=== PATIENT | male | born 1955 | race Caucasian/White ===

== ENCOUNTER 2018-06-20 18:04 | Observation (INO) ==
[2018-06-20] MEDS ORDERED: Sod Chloride 0.9% Inj 1,000 ML IV.SIG ONE ×2 (19:11→20:55)
[2018-06-20] MEDS ORDERED: Morphine Inj 4 MG/ML Vial IV.PUSH ONE (19:23)
--- NOTE | 2018-06-20 19:36 | ED ---
HPI General Chief complaint: Weakness Stated complaint: Diabetic complaint Time Seen by Provider: 06/20/18 19:10 Source: patient and family Limitations: no limitations History of Present Illness HPI narrative: The patient is a 62 year old female who presents to the [facility] emergency department with a history of abdominal pain in the left lower quadrant, nausea, vomiting, and diarrhea that began 2 weeks ago. The patient reports that he has a history of intermittent lower extremity edema and diabetic neuropathy. He reports that his lower extremity edema has been worse than usual over the last 2 weeks and his neuropathic pain is also worse. He reports that 2 weeks ago he ran out of insulin for his insulin pump. He reports that he is having difficulty getting insulin prescription filled from the pharmacy. He denies being on any short acting insulin. Patient arrives with a blood sugar of 400. The patient reports that he was seen at the emergency department at [facility] between Wednesday and Wednesday a.m. He reports that he is diagnosed with an intestinal infection and started on Flagyl and ciprofloxacin. He reports that his symptoms have worsened with time. He reports that he has been taking Zofran for nausea. He reports that he last had an episode of diarrhea yesterday. He reports that it is loose and brown in color. He denies having any blood in his stool or black or tarry stools. His family reports that it does have a foul odor. He denies any stool studies being done at [facility]. He reports having dry heaves today in spite of Zofran use. He reports that the emesis at times appears bilious. He denies having any hematemesis. On review of systems otherwise, the patient denies having any known recent fevers, worsening cough or congestion , neck pain, chest pain, dysuria, urinary urgency,or neurologic symptoms. The patient reports having urinary frequency. The patient also reports having chronic shortness of breath. He reports that he is down 3 L nasal cannula O2 as needed during the day and through the night. Related Data Home Medications Medication Instructions Recorded Confirmed ciprofloxacin HCl [Cipro] 500 mg PO Q12H 06/21/18 06/21/18 metronidazole [Flagyl] 500 mg PO BID 06/21/18 06/21/18 oxycodone [OxyContin] 40 mg PO Q12H 06/21/18 06/21/18 oxycodone [Roxicodone] 15 mg PO Q8H PRN 06/21/18 06/21/18 Previous Rx's Medication Instructions Recorded ciprofloxacin HCl 500 mg PO Q12HR #20 tab 06/21/18 insulin aspart U-100 [Novolog 1 sliding scale dose SUB-Q UD #5 06/21/18 U-100 Insulin aspart] vial insulin detemir U-100 [Levemir 5 unit SUB-Q BID #2 vial 06/21/18 U-100 Insulin] metronidazole 500 mg PO Q8HR #30 tab 06/21/18 sennosides [Senna Lax] 17.2 mg PO Q12H PRN #120 tab 06/21/18 Allergies Allergy/AdvReac Type Severity Reaction Status Date / Time amoxicillin [From Augmentin] Allergy Rash Verified 06/20/18 18:26 clavulanic acid Allergy Rash Verified 06/20/18 18:26 [From Augmentin] prednisone Allergy Rash Verified 06/20/18 18:26 Review of Systems ROS: all other systems reviewed are negative (Except for that which was mentioned in the HPI.) [facility]LY [facility] Medical History Medical History COPD (chronic obstructive pulmonary disease) (Acute) Diabetes mellitus (Acute) [place] (hard of hearing) (Acute) Insulin dependent diabetes mellitus (Acute) Neuropathy (Acute) Surgical History Surgical History Hx of cholecystectomy (Acute) Family History Family History Father CAD (coronary artery disease) Mother Stomach cancer Social History Social History Substance History: No History of Abuse Smoking Status: Former smoker Tobacco Type: Cigarettes How Often Do You Have a Drink Containing Alcohol: Never Immunization History Tetanus Immunization: >5 Years Hx Influenza Vaccine This Season: Yes Exam Const General: cooperative, well developed and acute distress (Related to abdominal pain.) moderate Orientation: alert, awake and oriented x3 HENMT Head: normocephalic and atraumatic Nose: no nasal discharge and no epistaxis Mouth: mucous membranes dry (Tacky mucous membranes.) Throat: posterior oropharynx normal and uvula midline Eyes Sclera: normal sclerae Pupils: PERRL Neck Neck: no meningeal signs, trachea midline and no JVD Resp Effort & Inspection: no use of accessory muscles Auscultation: clear to auscultation bilaterally Cardio Rate: regular rate Rhythm: regular rhythm Heart Sounds: no gallops, no murmurs and no rubs GI Inspection: non-distended Palpation: soft, no hepatosplenomegaly, no guarding, not rigid and tender ( Diffuse tenderness on palpation. Most prominent in the left lower quadrant of the abdomen.) Bishop's sign negative and with no rebound tenderness Auscultation: normal bowel sounds Back/Spine/Pelvis Back: no CVA tenderness Skin General: dry skin (warm) Neuro General: alert, awake and oriented x3 Cranial Nerves: other (Grossly nonfocal. No facial asymmetry.) Speech: speech normal Motor: no movement abnormalities noted Extrem General: normal to inspection (No calf tenderness on palpation. 2+ pulses in all 4 extremities.), no clubbing, no cyanosis and edema (Bilateral lower extremity edema mainly involving the feet, 1+.) Laterality: bilaterally Psych Mood: congruent mood Affect: normal affect Judgment: judgment good Course Reevaluation(s) Reevaluation #1: The patient on reevaluation had improvement in his, nausea and vomiting was controlled. Consultations Consultation #1: The patient's case including history, pertinent physical examination findings, and laboratory studies were discussed with Dr. Alex. It was agreed that the patient would be admitted to the hospitalist service. Initial Documented Vital Signs Temperature 97.8 F 06/20/18 18:07 Pulse Rate 101 H 06/20/18 18:07 Respiratory Rate 20 06/20/18 18:07 Blood Pressure 154/94 H 06/20/18 18:07 Pulse Oximetry 95 06/20/18 18:07 Last Documented Vital Signs Temperature 97.8 F 06/21/18 05:07 Pulse Rate 74 06/21/18 05:13 Respiratory Rate 20 06/21/18 05:13 Blood Pressure 107/54 L 06/21/18 05:13 Pulse Oximetry 97 06/21/18 05:07 Medical Decision Making MDM Narrative Medical decision making narrative: The patient will be discharged During the course of the patient's emergency department visit, the patient's history, examination, and differential diagnosis were reviewed with the patient. The patient was placed on a cardiac nurse specialist with oximetry and frequent blood pressure monitoring. The patient had IV access obtained and blood work sent for analysis. Diagnostic evaluation was started regarding the patient's abdominal pain. The patient was initially provided normal saline 1 L IV fluid bolus, morphine 4 mg IV for pain, Zofran Reglan 5 mg IV for nausea. The patient's diagnostic evaluation is remarkable for a white count of 5.8, platelets 260, neutrophil 79.8, hemoglobin 13.6, PT 11.4, PTT 24.8, VBG reveals a pH of 7.37, bicarb of 22 ruling out DKA, chemistries remarkable for troponin I of 0.04, sodium 133, glucose 344, lipase 27, chloride 95, calcium 7.9, beta hydroxybutyrate is elevated at 5.22, AST 14, anion gap 17, albumin 3.2. Chest x -ray shows hyperinflation from COPD, increased interstitial markings in the perihilar region these could be acute or chronic. The patient was given regular insulin 4 units subcutaneously 1. The patient was started on a second liter of normal saline IV. The patient had a CT scan of the abdomen and pelvis done that showed very prominent suspected emphysematous changes bullous changes in the right lower lung, scattered areas of suspected scarring atelectasis or consolidation of the lung bases, intra-and extrahepatic biliary ductal dilatation status post cholecystectomy, appears to be atrophy of the pancreas, no other acute abnormality. The patient's results were discussed with the patient, including the plan of care. I explained that further testing and/ or monitoring is indicated based on the patient's history, examination, and/ or laboratory findings. Therefore, I recommended admission for additional evaluation. The patient expressed understanding and was agreeable with this plan. The patient was admitted to the hospital in guarded condition and sent to a bed under the care of [facility] service. Medical Screen Exam Complete: Yes Emergency Medical Condition: Yes Differential Diagnosis Differential Diagnosis: DKA, versus colitis, versus diverticulitis, versus C. difficile colitis, versus gastroenteritis Medical Records Medical records reviewed: Yes I reviewed the patient's medical records. Lab Data Lab results reviewed: Yes I reviewed the patient's lab results. Result diagrams: 06/21/18 01:40 06/21/18 05:55 Lab Results 06/20/18 06/20/18 06/20/18 Range/Units 18:09 19:30 19:30 WBC (4.0-11.0) th/mm3 RBC (4.50-5.90) mil/mm3 Hgb (13.0-17.0) gm/dL Hct (39.0-51.0) % MCV (80.0-100.0) fL MCH (27.0-34.0) pg MCHC (32.0-36.0) % RDW (11.6-17.2) % Plt Count (150-450) th/mm3 MPV (7.0-11.0) fL Neut % (Auto) (16.0-70.0) % Lymph % (Auto) (9.0-44.0) % [place] % (Auto) (0.0-8.0) % Eos % (Auto) (0.0-4.0) % Baso % (Auto) (0.0-2.0) % Neut # (Auto) (1.8-7.7) th/mm3 Lymph # (Auto) (1.0-4.8) th/mm3 [place] # (Auto) (0.0-0.9) th/mm3 Eos # (Auto) (0.0-0.4) th/mm3 Baso # (Auto) (0.0-0.2) th/mm3 WBC Differential Differential Comment PT 11.4 (9.8-11.6) sec INR 1.1 Ratio APTT 24.8 (24.3-30.1) sec Puncture Site Patient Temperature VBG pH (7.360-7.400) VBG pCO2 (44-48) mmHG VBG pO2 (35-40) mmHG VBG HCO3 (22-26) mmol/L VBG O2 Saturation (70-76) % VBG O2 Content (9.0-17.0) Vol % VBG Base Excess (-2-2) mmol/L VBG Carboxyhemoglobin (0-4) % VBG Methemoglobin (0-2) % Hemoglobin (12.0-16.0) G/DL O2 Delivery Device Liter Flow L/M Inspired O2 % Critical Value Sodium (136-145) meq/L Potassium (3.5-5.1) meq/L Chloride (98-107) meq/L Carbon Dioxide (21.0-32.0) meq/L Anion Gap (5-15) meq/L BUN (7-18) mg/dL Creatinine (0.60-1.30) mg/dL Estimated GFR (>89) mL/min POC Glucose 400 H (68-110) mg/dl Random Glucose (74-106) mg/dL Lactic Acid 1.2 (0.4-2.0) mmol/L Calcium (8.5-10.1) mg/dL Total Bilirubin (0.2-1.0) mg/dL AST (15-37) U/L ALT (12-78) U/L Alkaline Phosphatase (45-117) U/L Total Creatine Kinase (39-308) U/L CK-MB (CK-2) (0.5-3.6) ng/mL Troponin I (0.02-0.05) ng/mL B-Natriuretic Peptide (0-100) pg/mL Total Protein (6.4-8.2) g/dL Albumin (3.4-5.0) g/dL Lipase (73-393) U/L Beta-Hydroxybutyric Acd (0.00-0.39) mmol/L Urine Color (Yellw/Straw) Urine Clarity (Clear) Urine pH (5.0-8.5) Ur Specific [place] (1.002-1.035) Urine Protein (Neg-Trace) mg/dL Urine Glucose (UA) (Negative) mg/dL Urine Ketones (Negative) mg/dL Urine Occult Blood (Negative) Urine Nitrate (Negative) Urine Bilirubin (Negative) Urine Urobilinogen (Less than 2) mg/dL Ur Leukocyte Esterase (Negative) Urine RBC (0-3) /hpf Urine WBC (0-5) /hpf Micro UA Comment Ur Microscopic Review Urine Culture Comments 06/20/18 06/20/18 06/20/18 Range/Units 19:30 19:30 19:30 WBC 5.8 (4.0-11.0) th/mm3 RBC 4.57 (4.50-5.90) mil/mm3 Hgb 13.6 (13.0-17.0) gm/dL Hct 40.4 (39.0-51.0) % MCV 88.4 (80.0-100.0) fL MCH 29.6 (27.0-34.0) pg MCHC 33.5 (32.0-36.0) % RDW 13.1 (11.6-17.2) % Plt Count 260 (150-450) th/mm3 MPV 7.7 (7.0-11.0) fL Neut % (Auto) 79.8 H (16.0-70.0) % Lymph % (Auto) 12.0 (9.0-44.0) % [place] % (Auto) 5.6 (0.0-8.0) % Eos % (Auto) 1.5 (0.0-4.0) % Baso % (Auto) 1.1 (0.0-2.0) % Neut # (Auto) 4.6 (1.8-7.7) th/mm3 Lymph # (Auto) 0.7 L (1.0-4.8) th/mm3 [place] # (Auto) 0.3 (0.0-0.9) th/mm3 Eos # (Auto) 0.1 (0.0-0.4) th/mm3 Baso # (Auto) 0.1 (0.0-0.2) th/mm3 WBC Differential . Differential Comment Auto diff final PT (9.8-11.6) sec INR Ratio APTT (24.3-30.1) sec Puncture Site Rn yomi from iv Patient Temperature 98.6 VBG pH 7.37 (7.360-7.400) VBG pCO2 39 L (44-48) mmHG VBG pO2 50 H (35-40) mmHG VBG HCO3 22 (22-26) mmol/L VBG O2 Saturation 80 H (70-76) % VBG O2 Content 14.5 (9.0-17.0) Vol % VBG Base Excess -2.8 L (-2-2) mmol/L VBG Carboxyhemoglobin 1.7 (0-4) % VBG Methemoglobin 0.8 (0-2) % Hemoglobin 12.9 (12.0-16.0) G/DL O2 Delivery Device Nasal cannula Liter Flow 2.00 L/M Inspired O2 21 % Critical Value No Sodium (136-145) meq/L Potassium (3.5-5.1) meq/L Chloride (98-107) meq/L Carbon Dioxide (21.0-32.0) meq/L Anion Gap (5-15) meq/L BUN (7-18) mg/dL Creatinine (0.60-1.30) mg/dL Estimated GFR (>89) mL/min POC Glucose (68-110) mg/dl Random Glucose (74-106) mg/dL Lactic Acid (0.4-2.0) mmol/L Calcium (8.5-10.1) mg/dL Total Bilirubin (0.2-1.0) mg/dL AST (15-37) U/L ALT (12-78) U/L Alkaline Phosphatase (45-117) U/L Total Creatine Kinase 136 (39-308) U/L CK-MB (CK-2) 2.9 (0.5-3.6) ng/mL Troponin I 0.04 (0.02-0.05) ng/mL B-Natriuretic Peptide (0-100) pg/mL Total Protein (6.4-8.2) g/dL Albumin (3.4-5.0) g/dL Lipase (73-393) U/L Beta-Hydroxybutyric Acd 5.22 H (0.00-0.39) mmol/L Urine Color (Yellw/Straw) Urine Clarity (Clear) Urine pH (5.0-8.5) Ur Specific [place] (1.002-1.035) Urine Protein (Neg-Trace) mg/dL Urine Glucose (UA) (Negative) mg/dL Urine Ketones (Negative) mg/dL Urine Occult Blood (Negative) Urine Nitrate (Negative) Urine Bilirubin (Negative) Urine Urobilinogen (Less than 2) mg/dL Ur Leukocyte Esterase (Negative) Urine RBC (0-3) /hpf Urine WBC (0-5) /hpf Micro UA Comment Ur Microscopic Review Urine Culture Comments 06/20/18 06/20/18 06/20/18 Range/Units 19:30 19:30 20:50 WBC (4.0-11.0) th/mm3 RBC (4.50-5.90) mil/mm3 Hgb (13.0-17.0) gm/dL Hct (39.0-51.0) % MCV (80.0-100.0) fL MCH (27.0-34.0) pg MCHC (32.0-36.0) % RDW (11.6-17.2) % Plt Count (150-450) th/mm3 MPV (7.0-11.0) fL Neut % (Auto) (16.0-70.0) % Lymph % (Auto) (9.0-44.0) % [place] % (Auto) (0.0-8.0) % Eos % (Auto) (0.0-4.0) % Baso % (Auto) (0.0-2.0) % Neut # (Auto) (1.8-7.7) th/mm3 Lymph # (Auto) (1.0-4.8) th/mm3 [place] # (Auto) (0.0-0.9) th/mm3 Eos # (Auto) (0.0-0.4) th/mm3 Baso # (Auto) (0.0-0.2) th/mm3 WBC Differential Differential Comment PT (9.8-11.6) sec INR Ratio APTT (24.3-30.1) sec Puncture Site Patient Temperature VBG pH (7.360-7.400) VBG pCO2 (44-48) mmHG VBG pO2 (35-40) mmHG VBG HCO3 (22-26) mmol/L VBG O2 Saturation (70-76) % VBG O2 Content (9.0-17.0) Vol % VBG Base Excess (-2-2) mmol/L VBG Carboxyhemoglobin (0-4) % VBG Methemoglobin (0-2) % Hemoglobin (12.0-16.0) G/DL O2 Delivery Device Liter Flow L/M Inspired O2 % Critical Value Sodium 133 L (136-145) meq/L Potassium 4.8 (3.5-5.1) meq/L Chloride 95 L (98-107) meq/L Carbon Dioxide 21.0 (21.0-32.0) meq/L Anion Gap 17 H (5-15) meq/L BUN 10 (7-18) mg/dL Creatinine 0.81 (0.60-1.30) mg/dL Estimated GFR Greater than 89 (>89) mL/min POC Glucose (68-110) mg/dl Random Glucose 344 H (74-106) mg/dL Lactic Acid (0.4-2.0) mmol/L Calcium 7.9 L (8.5-10.1) mg/dL Total Bilirubin 0.6 (0.2-1.0) mg/dL AST 14 L (15-37) U/L ALT 19 (12-78) U/L Alkaline Phosphatase 109 (45-117) U/L Total Creatine Kinase (39-308) U/L CK-MB (CK-2) (0.5-3.6) ng/mL Troponin I (0.02-0.05) ng/mL B-Natriuretic Peptide 61 (0-100) pg/mL Total Protein 6.4 (6.4-8.2) g/dL Albumin 3.2 L (3.4-5.0) g/dL Lipase 27 L (73-393) U/L Beta-Hydroxybutyric Acd (0.00-0.39) mmol/L Urine Color Yellow (Yellw/Straw) Urine Clarity Clear (Clear) Urine pH 6.0 (5.0-8.5) Ur Specific [place] 1.027 (1.002-1.035) Urine Protein Negative (Neg-Trace) mg/dL Urine Glucose (UA) 500 or greater (Negative) mg/dL Urine Ketones 80 or greater (Negative) mg/dL Urine Occult Blood Small H (Negative) Urine Nitrate Negative (Negative) Urine Bilirubin Negative (Negative) Urine Urobilinogen Less than 2 (Less than 2) mg/dL Ur Leukocyte Esterase Negative (Negative) Urine RBC 1 (0-3) /hpf Urine WBC 1 (0-5) /hpf Micro UA Comment Culture not ind Ur Microscopic Review Not Reportable Urine Culture Comments Culture not ind 06/21/18 06/21/18 06/21/18 Range/Units 01:40 01:40 05:55 WBC 6.6 (4.0-11.0) th/mm3 RBC 4.40 L (4.50-5.90) mil/mm3 Hgb 13.0 (13.0-17.0) gm/dL Hct 37.8 L (39.0-51.0) % MCV 86.0 (80.0-100.0) fL MCH 29.5 (27.0-34.0) pg MCHC 34.3 (32.0-36.0) % RDW 13.1 (11.6-17.2) % Plt Count 264 (150-450) th/mm3 MPV 7.5 (7.0-11.0) fL Neut % (Auto) 69.9 (16.0-70.0) % Lymph % (Auto) 16.5 (9.0-44.0) % [place] % (Auto) 9.4 H (0.0-8.0) % Eos % (Auto) 3.2 (0.0-4.0) % Baso % (Auto) 1.0 (0.0-2.0) % Neut # (Auto) 4.6 (1.8-7.7) th/mm3 Lymph # (Auto) 1.1 (1.0-4.8) th/mm3 [place] # (Auto) 0.6 (0.0-0.9) th/mm3 Eos # (Auto) 0.2 (0.0-0.4) th/mm3 Baso # (Auto) 0.1 (0.0-0.2) th/mm3 WBC Differential . Differential Comment Auto diff final PT (9.8-11.6) sec INR Ratio APTT (24.3-30.1) sec Puncture Site Patient Temperature VBG pH (7.360-7.400) VBG pCO2 (44-48) mmHG VBG pO2 (35-40) mmHG VBG HCO3 (22-26) mmol/L VBG O2 Saturation (70-76) % VBG O2 Content (9.0-17.0) Vol % VBG Base Excess (-2-2) mmol/L VBG Carboxyhemoglobin (0-4) % VBG Methemoglobin (0-2) % Hemoglobin (12.0-16.0) G/DL O2 Delivery Device Liter Flow L/M Inspired O2 % Critical Value Sodium 137 135 L (136-145) meq/L Potassium 4.2 4.3 (3.5-5.1) meq/L Chloride 101 100 (98-107) meq/L Carbon Dioxide 25.6 25.5 (21.0-32.0) meq/L Anion Gap 10 10 (5-15) meq/L BUN 8 8 (7-18) mg/dL Creatinine 0.79 0.67 (0.60-1.30) mg/dL Estimated GFR Greater than 89 Greater than 89 (>89) mL/min POC Glucose (68-110) mg/dl Random Glucose 222 H D 243 H (74-106) mg/dL Lactic Acid (0.4-2.0) mmol/L Calcium 7.5 L 7.6 L (8.5-10.1) mg/dL Total Bilirubin 0.4 (0.2-1.0) mg/dL AST 14 L (15-37) U/L ALT 17 (12-78) U/L Alkaline Phosphatase 94 (45-117) U/L Total Creatine Kinase (39-308) U/L CK-MB (CK-2) (0.5-3.6) ng/mL Troponin I 0.03 (0.02-0.05) ng/mL B-Natriuretic Peptide (0-100) pg/mL Total Protein 5.6 L D (6.4-8.2) g/dL Albumin 2.8 L (3.4-5.0) g/dL Lipase (73-393) U/L Beta-Hydroxybutyric Acd (0.00-0.39) mmol/L Urine Color (Yellw/Straw) Urine Clarity (Clear) Urine pH (5.0-8.5) Ur Specific [place] (1.002-1.035) Urine Protein (Neg-Trace) mg/dL Urine Glucose (UA) (Negative) mg/dL Urine Ketones (Negative) mg/dL Urine Occult Blood (Negative) Urine Nitrate (Negative) Urine Bilirubin (Negative) Urine Urobilinogen (Less than 2) mg/dL Ur Leukocyte Esterase (Negative) Urine RBC (0-3) /hpf Urine WBC (0-5) /hpf Micro UA Comment Ur Microscopic Review Urine Culture Comments 06/21/18 06/21/18 Range/Units 08:05 08:30 WBC (4.0-11.0) th/mm3 RBC (4.50-5.90) mil/mm3 Hgb (13.0-17.0) gm/dL Hct (39.0-51.0) % MCV (80.0-100.0) fL MCH (27.0-34.0) pg MCHC (32.0-36.0) % RDW (11.6-17.2) % Plt Count (150-450) th/mm3 MPV (7.0-11.0) fL Neut % (Auto) (16.0-70.0) % Lymph % (Auto) (9.0-44.0) % [place] % (Auto) (0.0-8.0) % Eos % (Auto) (0.0-4.0) % Baso % (Auto) (0.0-2.0) % Neut # (Auto) (1.8-7.7) th/mm3 Lymph # (Auto) (1.0-4.8) th/mm3 [place] # (Auto) (0.0-0.9) th/mm3 Eos # (Auto) (0.0-0.4) th/mm3 Baso # (Auto) (0.0-0.2) th/mm3 WBC Differential Differential Comment PT (9.8-11.6) sec INR Ratio APTT (24.3-30.1) sec Puncture Site Patient Temperature VBG pH (7.360-7.400) VBG pCO2 (44-48) mmHG VBG pO2 (35-40) mmHG VBG HCO3 (22-26) mmol/L VBG O2 Saturation (70-76) % VBG O2 Content (9.0-17.0) Vol % VBG Base Excess (-2-2) mmol/L VBG Carboxyhemoglobin (0-4) % VBG Methemoglobin (0-2) % Hemoglobin (12.0-16.0) G/DL O2 Delivery Device Liter Flow L/M Inspired O2 % Critical Value Sodium (136-145) meq/L Potassium (3.5-5.1) meq/L Chloride (98-107) meq/L Carbon Dioxide (21.0-32.0) meq/L Anion Gap (5-15) meq/L BUN (7-18) mg/dL Creatinine (0.60-1.30) mg/dL Estimated GFR (>89) mL/min POC Glucose 250 H (68-110) mg/dl Random Glucose (74-106) mg/dL Lactic Acid (0.4-2.0) mmol/L Calcium (8.5-10.1) mg/dL Total Bilirubin (0.2-1.0) mg/dL AST (15-37) U/L ALT (12-78) U/L Alkaline Phosphatase (45-117) U/L Total Creatine Kinase (39-308) U/L CK-MB (CK-2) (0.5-3.6) ng/mL Troponin I 0.04 (0.02-0.05) ng/mL B-Natriuretic Peptide (0-100) pg/mL Total Protein (6.4-8.2) g/dL Albumin (3.4-5.0) g/dL Lipase (73-393) U/L Beta-Hydroxybutyric Acd (0.00-0.39) mmol/L Urine Color (Yellw/Straw) Urine Clarity (Clear) Urine pH (5.0-8.5) Ur Specific [place] (1.002-1.035) Urine Protein (Neg-Trace) mg/dL Urine Glucose (UA) (Negative) mg/dL Urine Ketones (Negative) mg/dL Urine Occult Blood (Negative) Urine Nitrate (Negative) Urine Bilirubin (Negative) Urine Urobilinogen (Less than 2) mg/dL Ur Leukocyte Esterase (Negative) Urine RBC (0-3) /hpf Urine WBC (0-5) /hpf Micro UA Comment Ur Microscopic Review Urine Culture Comments Imaging Data Radiologist's impression: Chest X-Ray 06/20/18 19:11 CONCLUSION: Prominent lucency seen along the lateral right mid and lower lung likely from emphysematous change. A pneumothorax is not clearly seen. A pleural reflection is not seen. Hyperinflated lungs likely from chronic obstructive disease. Increased interstitial markings in the perihilar regions. These could be acute or chronic. The lungs could be better evaluated with a CT examination of the chest. Abdomen/Pelvis CT 06/20/18 19:24 CONCLUSION: 1. Very prominent suspected emphysematous change/bullous change in the right lower lung. 2. Scattered areas of suspected scarring, atelectasis or consolidation at the lung bases. 3. Intra and extrahepatic biliary duct dilatation. 4. There appears to be atrophy of the pancreas. Venous Doppler Study 06/21/18 00:00 CONCLUSION: Negative study. No venous thrombosis of either lower extremity. ECG Data Attestation: I personally reviewed and interpreted this ECG as follows: Interpretation: The patient had an EKG done on arrival that shows a sinus rhythm with a sinus arrhythmia, heart rate of 89, QRS duration 68 ms, QTC [address] segment elevation, T waves are inverted in V1, V2. Discharge Plan Discharge Disposition Patient Disposition: 30 Still Patient Discharge Condition Condition: Good Discharge Order Discharge Orders: Discharge Order (Routine); Ordered 06/21/18 Ordered By: Osmar Lobo Discharge Details Anticipated Discharge Date: 06/21/18 Discharge Comment: dc to home Diagnosis: Abdominal pain, Acute dehydration Physicians Team ED Provider: Jennifer Trejo Primary Care Provider: UNKNOWN, Attending Provider: Osmar Lobo Discharge Interventions Interventions: ED Discharge Assessment Last Done: 06/21/18 10:56 Vital Signs Last Done: 06/21/18 05:13 Status ED Status: Left Department Discharge Information Discharge Date/Time: 06/21/18 10:58
[2018-06-20 19:41] LABS: VBG Base Excess -2.8 mmol/L (-2-2); VBG Blood Gas Oxygen Content 14.5 Vol % (9.0-17.0); VBG PCO2 39 mmHG (44-48); VBG PH 7.37 (7.360-7.400); VBG PO2 50 mmHG (35-40)
[2018-06-20 19:44] LABS: Baso # (Auto) 0.1 th/mm3 (0.0-0.2); Baso % (Auto) 1.1 % (0.0-2.0); Eos # (Auto) 0.1 th/mm3 (0.0-0.4); Eos % (Auto) 1.5 % (0.0-4.0); Hematocrit 40.4 % (39.0-51.0); Hemoglobin 13.6 gm/dL (13.0-17.0); Lymph # (Auto) 0.7 th/mm3 (1.0-4.8); Mean Corpuscular HGB Conc 33.5 % (32.0-36.0); Mean Corpuscular Hemoglobin 29.6 pg (27.0-34.0); Mean Corpuscular Volume 88.4 fL (80.0-100.0); Mean Platelet Volume 7.7 fL (7.0-11.0); Mono # (Auto) 0.3 th/mm3 (0.0-0.9); Mono % (Auto) 5.6 % (0.0-8.0); Neut # (Auto) 4.6 th/mm3 (1.8-7.7); Neut % (Auto) 79.8 % (16.0-70.0); Platelet Count 260 th/mm3 (150-450); Red Blood Count 4.57 mil/mm3 (4.50-5.90); Red Cell Distribution Width 13.1 % (11.6-17.2); White Blood Count 5.8 th/mm3 (4.0-11.0)
[2018-06-20 19:55] LABS: Activated Partial Thrombo Time 24.8 sec (24.3-30.1); INR 1.1 Ratio; Prothrombin Time 11.4 sec (9.8-11.6)
[2018-06-20 20:01] LABS: Albumin 3.2 g/dL (3.4-5.0); Anion Gap 17 meq/L (5-15); Aspartate Aminotransferase 14 U/L (15-37); Blood Urea Nitrogen 10 mg/dL (7-18); Calcium 7.9 mg/dL (8.5-10.1); Chloride 95 meq/L (98-107); Glomerular Filtration Rate Greater Than 89 mL/min (>89); Glucose,Random 344 mg/dL (74-106); Lipase 27 U/L (73-393); Potassium 4.8 meq/L (3.5-5.1); Sodium 133 meq/L (136-145)
[2018-06-20 20:04] LABS: Alanine Aminotransferase 19 U/L (12-78); Alkaline Phosphatase 109 U/L (45-117); Total Protein 6.4 g/dL (6.4-8.2)
--- NOTE | 2018-06-20 20:11 | XR ---
EXAM DATE: 06/20/2018 7:59 PM EDT AGE/SEX: 62 years / Male INDICATIONS: Cough. CLINICAL DATA: This is the patient's initial encounter. Patient reports that signs and symptoms have been present for > 1 year and indicates a pain score of 0/10. MEDICAL/SURGICAL HISTORY: Chronic obstructive pulmonary disease. None. COMPARISON: No prior exams available for comparison. FINDINGS: The heart size is normal. There is prominent lucency seen at the lateral right mid and lower chest. T his is likely from prominent emphysematous change. What appears to be a minor fissure is seen. A late ral pleural reflection is not seen. There is increased initial markings seen in the perihilar regions . There is increased density at the right medial base likely related to atelectasis or consolidation. The lungs do appear hyperinflated. Prior studies are unavailable for comparison. CONCLUSION: Prominent lucency seen along the lateral right mid and lower lung likely from emphysematous change. A pneumothorax is not clearly seen. A pleural reflection is not seen. Hyperinflated lungs likely from chronic obstructive disease. Increased interstitial markings in the perihilar regions. These could be acute or chronic. The lungs could be better evaluated with a CT examination of the chest. Electronically signed by: Kaiden Bar MD 06/20/2018 8:10 PM EDT
[2018-06-20 20:12] LABS: Beta Hydroxybutyric Acid 5.22 mmol/L (0.00-0.39); Creatine Kinase 136 U/L (39-308); Troponin I 0.04 ng/mL (0.02-0.05)
[2018-06-20 20:24] LABS: Creatine Kinase MB 2.9 ng/mL (0.5-3.6)
[2018-06-20 21:03] LABS: Bilirubin,Urine Negative (Negative); Clarity,Urine Clear (Clear); Color,Urine Yellow (Yellw/Straw); Glucose,Urine (UA) 500 or Greater mg/dL (Negative); Leukocyte Esterase,Urine Negative (Negative); Nitrite,Urine Negative (Negative); Specific Gravity,Urine 1.027 (1.002-1.035)
--- NOTE | 2018-06-20 22:11 | CT ---
EXAM DATE: 06/20/2018 9:27 PM EDT AGE/SEX: 62 years / Male INDICATIONS: Left lower abdomen pain today. CLINICAL DATA: This is the patient's initial encounter. Patient reports that signs and symptoms have been present for 1 day and indicates a pain score of 7/10. MEDICAL/SURGICAL HISTORY: Chronic obstructive pulmonary disease. Diabetes. Cholecystectomy. ORAL CONTRAST: No oral contrast ingested. RADIATION DOSE: 5.27 CTDI (mGy) COMPARISON: No prior exams available for comparison. TECHNIQUE: Multiple contiguous axial images were obtained through the abdomen and pelvis following b olus infusion of 97 ml Omnipaque 350 (iohexol) nonionic water-soluble contrast as a single exam dos e. No oral contrast ingested. Using automated exposure control and adjustment of the mA and/or kV ac cording to patient size, radiation dose was kept as low as reasonably achievable to obtain optimal di agnostic quality images. DICOM format image data is available electronically for review and comparis on. FINDINGS: Lower Lungs: There appears to be large areas of bullous change in the anterior lateral right lower del ng. There are some linear densities seen at the posterior left base likely related to scarring atelec tasis or mild consolidation. There is lesser degree of scarring or atelectasis seen at the left base. Liver: There is intrahepatic biliary duct dilatation. The common bile duct is dilated measuring 1.6 c m. The patient is status post cholecystectomy. Spleen: There is a 0.5 cm hypodensity seen in the spleen. Pancreas: There appears to be atrophy of the pancreas. Kidneys: Normal in size and shape. No evidence of mass or hydronephrosis. Adrenal Glands: Unremarkable. Aorta: The aorta and proximal iliac vessels are grossly unremarkable without aneurysmal dilation. A therosclerotic calcifications are present. Bowel/Mesentery: The bowel loops are grossly unremarkable. The cecum and sigmoid colon have a normal configuration. Abdominal Wall: Intact. Clips are seen at the anterior abdominal wall. Retroperitoneum: No evidence of adenopathy in the retrocrural, para-aortic, or deep pelvic regions. Bladder: Contours are smooth. Reproductive Organs: No abnormal masses or calcifications seen. Inguinal: The inguinal region is unremarkable without evidence of adenopathy. Bony Structures: Degenerative change in the lumbar spine. CONCLUSION: 1. Very prominent suspected emphysematous change/bullous change in the right lower lung. 2. Scattered areas of suspected scarring, atelectasis or consolidation at the lung bases. 3. Intra and extrahepatic biliary duct dilatation. 4. There appears to be atrophy of the pancreas. Electronically signed by: Kaiden Bar MD 06/20/2018 10:10 PM EDT
[2018-06-20] MEDS ORDERED: Dextrose 50% in Water 50 ML Vial IV.PUSH PRN (22:57)
[2018-06-20] MEDS ORDERED: Bisacodyl 10 MG Supp RECTAL PRN (22:59)
[2018-06-20] MEDS: Insulin Detemir Inj 1,000 UNIT/10 ML Vial SQ SCH (23:29)
[2018-06-20] MEDS: Sod Chloride 0.9% Inj 1,000 ML IV.CONT SCH (23:29)
[2018-06-21] MEDS: Ciprofloxacin 500 MG Tablet PO SCH ×2 (00:25→08:27)
[2018-06-21] MEDS: oxyCODONE HCL 40 MG Controlled Release Tablet PO SCH ×2 (00:25→08:58)
[2018-06-21 01:57] LABS: Baso # (Auto) 0.1 th/mm3 (0.0-0.2); Eos # (Auto) 0.2 th/mm3 (0.0-0.4); Eos % (Auto) 3.2 % (0.0-4.0); Hematocrit 37.8 % (39.0-51.0); Lymph # (Auto) 1.1 th/mm3 (1.0-4.8); Lymph % (Auto) 16.5 % (9.0-44.0); Mean Corpuscular HGB Conc 34.3 % (32.0-36.0); Mean Corpuscular Hemoglobin 29.5 pg (27.0-34.0); Mean Platelet Volume 7.5 fL (7.0-11.0); Mono # (Auto) 0.6 th/mm3 (0.0-0.9); Mono % (Auto) 9.4 % (0.0-8.0); Neut # (Auto) 4.6 th/mm3 (1.8-7.7); Neut % (Auto) 69.9 % (16.0-70.0); Platelet Count 264 th/mm3 (150-450); Red Cell Distribution Width 13.1 % (11.6-17.2); White Blood Count 6.6 th/mm3 (4.0-11.0)
[2018-06-21 02:33] LABS: Anion Gap 10 meq/L (5-15); Blood Urea Nitrogen 8 mg/dL (7-18); Calcium 7.5 mg/dL (8.5-10.1); Carbon Dioxide 25.6 meq/L (21.0-32.0); Chloride 101 meq/L (98-107); Glomerular Filtration Rate Greater Than 89 mL/min (>89); Glucose,Random 222 mg/dL (74-106); Potassium 4.2 meq/L (3.5-5.1); Sodium 137 meq/L (136-145); Troponin I 0.03 ng/mL (0.02-0.05)
[2018-06-21] MEDS ORDERED: Magnesium Citrate Liq 300 ML Bottle PO ONE (03:17)
--- NOTE | 2018-06-21 03:42 | P.HPIM ---
History of Present Illness Primary Care Physician: UNKNOWN History of Present Illness: 62-year-old male with a history of insulin-dependent diabetes mellitus who presents with a one-week history of constant sharp predominately left lower quadrant abdominal pain radiating to entire abdomen, as well as hyperglycemia with glucose in the 400s. He says he has an insulin pump, however has been out of his insulin for the past 2 weeks. He visited [facility] on Wednesday, had CT abdomen which shows constipation, with secondary colitis, and was started on Cipro and Flagyl which he has been taking. Patient also reports a two-week history of worsening acute on chronic bilateral lower extremity edema. Patient has chronic lumbar spinal stenosis with chronic bilateral lower extremity edema, however worse this week. He denies any chest pain, shortness of breath, nausea, vomiting, fever, chills. Review of Systems All other systems reviewed negative except as stated in HPI [facility] - History History Provided By: Patient, Significant Other - Medical History Medical History: Medical History (Last Reviewed 06/20/18 @ 19:38 by Jennifer Trejo MD) COPD (chronic obstructive pulmonary disease) Diabetes mellitus [employer] [place] (hard of hearing) Insulin dependent diabetes mellitus Neuropathy - Surgical History Surgical History: Surgical History (Last Reviewed 06/20/18 @ 19:38 by Jennifer Trejo MD) Hx of cholecystectomy - Family History Family History: Family History (Last Updated 06/21/18 @ 03:37 by Eliseo Alex MD) Father CAD (coronary artery disease) Mother Stomach cancer - Tobacco History Smoking Status: Former smoker Tobacco Type: Cigarettes - Alcohol History How Often Do You Have a Drink Containing Alcohol: Never - Substance Use History Substance History: No History of Abuse - Immunization History Tetanus Immunization: >5 Years Hx Influenza Vaccine This Season: Yes Medications and Allergies Active Medications: Active Medications Al Hydroxide/Mg Hydroxide (Milk Of Magnlino Liq) 30 ml PO Q12H PRN PRN Reason: Mild Constipation Albuterol (Duoneb Neb (Prn)) 1 ampul NEB Q4HR NEB PRN PRN Reason: SHORTNESS OF BREATH Bisacodyl (Dulcolax Supp) 10 mg RECTAL DAILY PRN PRN Reason: SEVERE CONSITIPATION Ciprofloxacin HCl (Cipro) 500 mg PO Q12HR [facility] Last Admin: 06/21/18 00:25 Dose: 500 mg Dextrose (D50w Vial) 50 ml IV.PUSH UNSCH PRN PRN Reason: PER HYPOGLYCEMIA PROTOCOL Glucagon (Glucagon Inj) 1 mg OTHER PRN PRN PRN Reason: for Hypoglycemia Protocol Sodium Chloride (Ns Inj) 1,000 mls @ 100 mls/hr IV.CONT .Q10H [facility] Last Admin: 06/20/18 23:29 Dose: 100 mls/hr Insulin Aspart (Novolog Insulin Correctional Sugar Inj) 0 unit SQ ACHS [facility]; Protocol Insulin Detemir (Levemir Inj) 5 unit SQ BID [facility] Last Admin: 06/20/18 23:29 Dose: 5 unit Lactulose (Lactulose Liq) 30 ml PO DAILY PRN PRN Reason: SEVERE CONSITIPATION Metronidazole (Flagyl) 500 mg PO Q8HR [facility] Ondansetron HCl (Zofran Inj) 4 mg IV.PUSH Q6H PRN PRN Reason: NAUSEA OR VOMITING Oxycodone HCl (Oxycontin Cr) 40 mg PO Q12HR [facility] Last Admin: 06/21/18 00:25 Dose: 40 mg Oxycodone HCl (Roxicodone) 15 mg PO Q8H PRN PRN Reason: PAIN SCALE 6 TO 10 Sennosides (Senokot) 17.2 mg PO Q12H PRN PRN Reason: Moderate Constipation Sodium Chloride (Ns Flush) 2 ml IV.FLUSH PRN PRN PRN Reason: FLUSH AFTER USING IV ACCESS Sodium Chloride (Ns Flush) 2 ml IV.FLUSH BID [facility] Allergies Allergy/AdvReac Type Severity Reaction Status Date / Time amoxicillin [From Augmentin] Allergy Rash Verified 06/20/18 18:26 clavulanic acid Allergy Rash Verified 06/20/18 18:26 [From Augmentin] prednisone Allergy Rash Verified 06/20/18 18:26 Exam Vital signs: Vital Signs 06/20/18 18:07 06/20/18 18:26 06/20/18 19:45 Temperature 97.8 F 97.9 F Pulse Rate 101 H 92 H Respiratory Rate 20 16 Blood Pressure 154/94 H 152/78 H Pulse Oximetry 95 94 L 98 06/20/18 19:46 06/20/18 20:24 06/20/18 20:41 Temperature Pulse Rate 85 71 Respiratory Rate 16 16 Blood Pressure 161/72 H 145/70 H Pulse Oximetry 98 98 98 06/21/18 00:42 Temperature Pulse Rate 75 Respiratory Rate 16 Blood Pressure 146/83 H Pulse Oximetry 98 Intake & Output 06/20/18 06/20/18 06/21/18 06:59 18:59 06:59 Weight 68.039 kg Narrative: GENERAL: Patient sitting up in bed. Appears comfortable. SKIN: Warm and dry. HEAD: Atraumatic. Normocephalic. EYES: Pupils equal and round. No scleral icterus. No injection or drainage. ENT: No nasal bleeding or discharge. Mucous membranes pink and moist. NECK: Trachea midline. No JVD. CARDIOVASCULAR: Regular rate and rhythm. RESPIRATORY: No accessory muscle use. Clear to auscultation. Breath sounds equal bilaterally. GASTROINTESTINAL: Abdomen tender to palpation left lower quadrant. No rebound or guarding. Hypoactive bowel sounds. Hepatic and splenic margins not palpable. MUSCULOSKELETAL: Extremities without clubbing, cyanosis. No obvious deformities. 1+ bilateral lower extremity edema. No erythema NEUROLOGICAL: Awake and alert. No obvious cranial nerve deficits. Motor grossly within normal limits. Five out of 5 muscle strength in the arms and legs. Normal speech. PSYCHIATRIC: Appropriate mood and affect; insight and judgment normal. Results - Labs CBC & Chem 7: 06/21/18 01:40 06/21/18 01:40 Labs: Short CBC 06/20/18 06/21/18 Range/Units 19:30 01:40 WBC 5.8 6.6 (4.0-11.0) th/mm3 Hgb 13.6 13.0 (13.0-17.0) gm/dL Hct 40.4 37.8 L (39.0-51.0) % Plt Count 260 264 (150-450) th/mm3 [facility] 06/20/18 06/21/18 19:30 01:40 Sodium 133 L 137 Potassium 4.8 4.2 Chloride 95 L 101 Carbon Dioxide 21.0 25.6 BUN 10 8 Creatinine 0.81 0.79 Calcium 7.9 L 7.5 L Cardiac Enzymes 06/20/18 06/21/18 Range/Units 19:30 01:40 Total Creatine Kinase 136 (39-308) U/L CK-MB (CK-2) 2.9 (0.5-3.6) ng/mL Troponin I 0.04 0.03 (0.02-0.05) ng/mL Liver Function 06/20/18 Range/Units 19:30 Total Bilirubin 0.6 (0.2-1.0) mg/dL AST 14 L (15-37) U/L ALT 19 (12-78) U/L Alkaline Phosphatase 109 (45-117) U/L Albumin 3.2 L (3.4-5.0) g/dL Urine 06/20/18 Range/Units 20:50 Urine Color Yellow (Yellw/Straw) Urine Clarity Clear (Clear) Urine pH 6.0 (5.0-8.5) Ur Specific [place] 1.027 (1.002-1.035) Urine Protein Negative (Neg-Trace) mg/dL Urine Glucose (UA) 500 or greater (Negative) mg/dL - Imaging Impressions Chest X-Ray 06/20/18 19:11 CONCLUSION: Prominent lucency seen along the lateral right mid and lower lung likely from emphysematous change. A pneumothorax is not clearly seen. A pleural reflection is not seen. Hyperinflated lungs likely from chronic obstructive disease. Increased interstitial markings in the perihilar regions. These could be acute or chronic. The lungs could be better evaluated with a CT examination of the chest. Abdomen/Pelvis CT 06/20/18 19:24 CONCLUSION: 1. Very prominent suspected emphysematous change/bullous change in the right lower lung. 2. Scattered areas of suspected scarring, atelectasis or consolidation at the lung bases. 3. Intra and extrahepatic biliary duct dilatation. 4. There appears to be atrophy of the pancreas. Caprini VTE Risk Assessment Caprini VTE Risk Assessment: Moderate/High Risk (score >= 2) Caprini Risk Assessment Model: Point Value = 1 Point Value = 2 Point Value = 3 Point Value = 5 Age 41-60 Minor surgery BMI > 25 kg/m2 Swollen legs Varicose veins or History of unexplained or recurrent spontaneous Oral contraceptives or hormone replacement Sepsis (< 1 month) Serious lung disease, including pneumonia (< 1 month) Abnormal pulmonary function Acute myocardial infarction Congestive heart failure (< 1 month) History of inflammatory bowel disease Medical patient at bed rest Age 61-74 Arthroscopic surgery Major open surgery (> 45 min) Laparoscopic surgery (> 45 min) Malignancy Confined to bed (> 72 hours) Immobilizing plaster cast Central venous access Age >= 75 History of VTE Family history of VTE Factor V Leiden Prothrombin [id number] Lupus anticoagulant Anticardiolipin antibodies Elevated serum homocysteine Heparin-induced thrombocytopenia Other congenital or acquired thrombophilia Stroke (< 1 month) Elective arthroplasty Hip, pelvis, or leg fracture Acute spinal cord injury (< 1 month) Prophylaxis Regimen: Total Risk Factor Score Risk Level Prophylaxis Regimen 0-1 Low Early ambulation 2 Moderate Order ONE of the following: *Sequential Compression Device (SCD) *Heparin 5000 units SQ BID 3-4 Higher Order ONE of the following medications: *Heparin 5000 units SQ TID *Enoxaparin/Lovenox 40 mg SQ daily (WT < 150 kg, CrCl > 30 mL/min) *Enoxaparin/Lovenox 30 mg SQ daily (WT < 150 kg, CrCl > 10-29 mL/min) *Enoxaparin/Lovenox 30 mg SQ BID (WT < 150 kg, CrCl > 30 mL/min) AND/OR *Sequential Compression Device (SCD) 5 or more Highest Order ONE of the following medications: *Heparin 5000 units SQ TID (Preferred with Epidurals) *Enoxaparin/Lovenox 40 mg SQ daily (WT < 150 kg, CrCl > 30 mL/min) *Enoxaparin/Lovenox 30 mg SQ daily (WT < 150 kg, CrCl > 10-29 mL/min) *Enoxaparin/Lovenox 30 mg SQ BID (WT < 150 kg, CrCl > 30 mL/min) AND *Sequential Compression Device (SCD) Assessment and Plan - Plan //Diabetes mellitus //Hyperglycemia //Diabetic ketoacidosis on presentation. = With an anion gap of 17, beta hydroxybutyric acid 5.2 = This has resolved with insulin. = We will continue diabetic diet and insulin sliding scale. Patient has an insulin pump, however is not in his possession at the moment. We will proceed with sliding scale and Levemir. //Opioid-induced constipation. //Abdominal pain //Colitis = Colitis versus diverticulitis reported on CT abdomen from [facility] this past Wednesday. We will continue antibiotics with Cipro and Flagyl for this. Marketed constipation on CT abdomen from [facility] as well as here. Personally visualized. = Have ordered magnesium citrate. //Chronic pain. //Lumbar spinal stenosis We will continue patient's home pain medication //Bilateral lower extremity edema. BNP only 61. This is likely secondary to spinal stenosis. Have recommended compression hose. = Doppler ultrasound bilateral lower extremity pending. //COPD. Chronic. Duo nebs as needed. Discussed Condition With: Patient, nurse, ED physician
--- NOTE | 2018-06-21 04:27 | US ---
EXAM DATE: 06/21/2018 4:21 AM EDT AGE/SEX: 62 years / Male INDICATIONS: Bilateral leg pain and edema. CLINICAL DATA: This is the patient's initial encounter. Patient reports that signs and symptoms have been present for 3 weeks and indicates a pain score of 7/10. MEDICAL/SURGICAL HISTORY: . Diabetic. COPD. Neuropathy. Cholecystectomy. COMPARISON: No prior exams available for comparison. TECHNIQUE: Venous ultrasound of both lower extremities was performed from the inguinal ligament to t he proximal calf. Real-time, color Doppler and spectral tracing, compression and augmentation techni ques were used. FINDINGS: Right Leg: Normal compression of the deep venous system from the inguinal region to the proximal tomás f. No echogenic clot is seen. Normal response of the venous system to augmentation and respiration. Left Leg: Normal compression of the deep venous system from the inguinal region to the proximal calf . No echogenic clot is seen. Normal response of the venous system to augmentation and respiration. Other: None. CONCLUSION: Negative study. No venous thrombosis of either lower extremity. Electronically signed by: Kaiden Ma MD 06/21/2018 4:25 AM EDT
[2018-06-21 05:08] VITALS: PULSE 74; TEMP 97.8; O2SAT 97
[2018-06-21 05:13] VITALS: BP 107/54; RESP 20
[2018-06-21] MEDS ORDERED: metroNIDAZOLE 500 MG Tablet PO SCH (06:00)
[2018-06-21 07:29] LABS: Albumin 2.8 g/dL (3.4-5.0); Anion Gap 10 meq/L (5-15); Aspartate Aminotransferase 14 U/L (15-37); Blood Urea Nitrogen 8 mg/dL (7-18); Calcium 7.6 mg/dL (8.5-10.1); Carbon Dioxide 25.5 meq/L (21.0-32.0); Chloride 100 meq/L (98-107); Glomerular Filtration Rate Greater Than 89 mL/min (>89); Glucose,Random 243 mg/dL (74-106); Potassium 4.3 meq/L (3.5-5.1); Sodium 135 meq/L (136-145)
[2018-06-21 07:30] LABS: Alanine Aminotransferase 17 U/L (12-78)
[2018-06-21 07:33] LABS: Alkaline Phosphatase 94 U/L (45-117); Total Protein 5.6 g/dL (6.4-8.2)
[2018-06-21] MEDS ORDERED: Insulin NovoLOG Aspart Correctional Sugar Inj SQ SCH (08:00)
[2018-06-21] MEDS: Insulin Detemir Inj 1,000 UNIT/10 ML Vial SQ SCH (08:27)
[2018-06-21] MEDS: Sod Chloride 0.9% Inj 1,000 ML IV.CONT SCH (08:30)
--- NOTE | 2018-06-21 10:14 | P.PNIM ---
Subjective Interval history: 62-year-old male with a history of insulin-dependent diabetes mellitus who presents with a one-week history of constant sharp predominately left lower quadrant abdominal pain radiating to entire abdomen, as well as hyperglycemia with glucose in the 400s. He says he has an insulin pump, however has been out of his insulin for the past 2 weeks. He visited [facility] on Wednesday, had CT abdomen which shows constipation, with secondary colitis, and was started on Cipro and Flagyl which he has been taking. Patient also reports a two-week history of worsening acute on chronic bilateral lower extremity edema. Patient has chronic lumbar spinal stenosis with chronic bilateral lower extremity edema, however worse this week. He denies any chest pain, shortness of breath, nausea, vomiting, fever, chills. 06-21 PATIENT HAS BEEN TOTALLY NONCOMPLIANT WITH HIS MEDICATIONS STATES HE SEES DR ELIF GREENFIELD AND DR GAVIN IN [place] STATES HE IS LIVING IN HIS TRUCK NOW HAS CHRONIC PAIN AND CHRONIC DM HAS NOT USED HIS INSULIN PUMP DUE TO FINANCES CAN BE DISCHARGED TO HOME TODAY Physical Exam Vital signs: Vital Signs 06/20/18 18:07 06/20/18 18:26 06/20/18 19:45 Temperature 97.8 F 97.9 F Pulse Rate 101 H 92 H Respiratory Rate 20 16 Blood Pressure 154/94 H 152/78 H Pulse Oximetry 95 94 L 98 06/20/18 19:46 06/20/18 20:24 06/20/18 20:41 Temperature Pulse Rate 85 71 Respiratory Rate 16 16 Blood Pressure 161/72 H 145/70 H Pulse Oximetry 98 98 98 06/21/18 00:42 06/21/18 04:18 06/21/18 05:07 Temperature 98.4 F 97.8 F Pulse Rate 75 81 74 Respiratory Rate 16 16 18 Blood Pressure 146/83 H 130/85 137/70 Pulse Oximetry 98 98 97 06/21/18 05:13 Temperature Pulse Rate 74 Respiratory Rate 20 Blood Pressure 107/54 L Pulse Oximetry Intake & Output 06/20/18 06/21/18 06/21/18 18:59 06:59 18:59 Intake Total 2685 / 2685 315 / 315 Balance 2685 / 2685 315 / 315 Weight 68.039 kg Intake: IV 2685 / 2685 315 / 315 NS Inj 1,000 ML @ 100 mls/hr IV 685 / 685 315 / 315 .CONT .Q10H [facility] Rx#:[id number] Narrative: GENERAL: Patient sitting up in bed. Appears comfortable. SKIN: Warm and dry. HEAD: Atraumatic. Normocephalic. EYES: Pupils equal and round. No scleral icterus. No injection or drainage. ENT: No nasal bleeding or discharge. Mucous membranes pink and moist. NECK: Trachea midline. No JVD. CARDIOVASCULAR: Regular rate and rhythm. RESPIRATORY: No accessory muscle use. Clear to auscultation. Breath sounds equal bilaterally. GASTROINTESTINAL: Abdomen tender to palpation left lower quadrant. No rebound or guarding. Hypoactive bowel sounds. Hepatic and splenic margins not palpable. MUSCULOSKELETAL: Extremities without clubbing, cyanosis. No obvious deformities. 1+ bilateral lower extremity edema. No erythema NEUROLOGICAL: Awake and alert. No obvious cranial nerve deficits. Motor grossly within normal limits. Five out of 5 muscle strength in the arms and legs. Normal speech. PSYCHIATRIC: Appropriate mood and affect; insight and judgment normal. Results - Labs CBC & Chem 7: 06/21/18 01:40 06/21/18 05:55 Laboratory Results - last 24 hr 06/20/18 06/20/18 06/20/18 18:09 19:30 19:30 WBC RBC Hgb Hct MCV MCH MCHC RDW Plt Count MPV Neut % (Auto) Lymph % (Auto) [place] % (Auto) Eos % (Auto) Baso % (Auto) Neut # (Auto) Lymph # (Auto) [place] # (Auto) Eos # (Auto) Baso # (Auto) WBC Differential Differential Comment PT 11.4 INR 1.1 APTT 24.8 Puncture Site Patient Temperature VBG pH VBG pCO2 VBG pO2 VBG HCO3 VBG O2 Saturation VBG O2 Content VBG Base Excess VBG Carboxyhemoglobin VBG Methemoglobin Hemoglobin O2 Delivery Device Liter Flow Inspired O2 Critical Value Sodium Potassium Chloride Carbon Dioxide Anion Gap BUN Creatinine Estimated GFR POC Glucose 400 H Random Glucose Lactic Acid 1.2 Calcium Total Bilirubin AST ALT Alkaline Phosphatase Total Creatine Kinase CK-MB (CK-2) Troponin I B-Natriuretic Peptide Total Protein Albumin Lipase Beta-Hydroxybutyric Acd Urine Color Urine Clarity Urine pH Ur Specific [place] Urine Protein Urine Glucose (UA) Urine Ketones Urine Occult Blood Urine Nitrate Urine Bilirubin Urine Urobilinogen Ur Leukocyte Esterase Urine RBC Urine WBC Micro UA Comment Ur Microscopic Review Urine Culture Comments 06/20/18 06/20/18 06/20/18 19:30 19:30 19:30 WBC 5.8 RBC 4.57 Hgb 13.6 Hct 40.4 MCV 88.4 MCH 29.6 MCHC 33.5 RDW 13.1 Plt Count 260 MPV 7.7 Neut % (Auto) 79.8 H Lymph % (Auto) 12.0 [place] % (Auto) 5.6 Eos % (Auto) 1.5 Baso % (Auto) 1.1 Neut # (Auto) 4.6 Lymph # (Auto) 0.7 L [place] # (Auto) 0.3 Eos # (Auto) 0.1 Baso # (Auto) 0.1 WBC Differential . Differential Comment Auto diff final PT INR APTT Puncture Site Rn yomi from iv Patient Temperature 98.6 VBG pH 7.37 VBG pCO2 39 L VBG pO2 50 H VBG HCO3 22 VBG O2 Saturation 80 H VBG O2 Content 14.5 VBG Base Excess -2.8 L VBG Carboxyhemoglobin 1.7 VBG Methemoglobin 0.8 Hemoglobin 12.9 O2 Delivery Device Nasal cannula Liter Flow 2.00 Inspired O2 21 Critical Value No Sodium Potassium Chloride Carbon Dioxide Anion Gap BUN Creatinine Estimated GFR POC Glucose Random Glucose Lactic Acid Calcium Total Bilirubin AST ALT Alkaline Phosphatase Total Creatine Kinase 136 CK-MB (CK-2) 2.9 Troponin I 0.04 B-Natriuretic Peptide Total Protein Albumin Lipase Beta-Hydroxybutyric Acd 5.22 H Urine Color Urine Clarity Urine pH Ur Specific [place] Urine Protein Urine Glucose (UA) Urine Ketones Urine Occult Blood Urine Nitrate Urine Bilirubin Urine Urobilinogen Ur Leukocyte Esterase Urine RBC Urine WBC Micro UA Comment Ur Microscopic Review Urine Culture Comments 06/20/18 06/20/18 06/20/18 19:30 19:30 20:50 WBC RBC Hgb Hct MCV MCH MCHC RDW Plt Count MPV Neut % (Auto) Lymph % (Auto) [place] % (Auto) Eos % (Auto) Baso % (Auto) Neut # (Auto) Lymph # (Auto) [place] # (Auto) Eos # (Auto) Baso # (Auto) WBC Differential Differential Comment PT INR APTT Puncture Site Patient Temperature VBG pH VBG pCO2 VBG pO2 VBG HCO3 VBG O2 Saturation VBG O2 Content VBG Base Excess VBG Carboxyhemoglobin VBG Methemoglobin Hemoglobin O2 Delivery Device Liter Flow Inspired O2 Critical Value Sodium 133 L Potassium 4.8 Chloride 95 L Carbon Dioxide 21.0 Anion Gap 17 H BUN 10 Creatinine 0.81 Estimated GFR Greater than 89 POC Glucose Random Glucose 344 H Lactic Acid Calcium 7.9 L Total Bilirubin 0.6 AST 14 L ALT 19 Alkaline Phosphatase 109 Total Creatine Kinase CK-MB (CK-2) Troponin I B-Natriuretic Peptide 61 Total Protein 6.4 Albumin 3.2 L Lipase 27 L Beta-Hydroxybutyric Acd Urine Color Yellow Urine Clarity Clear Urine pH 6.0 Ur Specific [place] 1.027 Urine Protein Negative Urine Glucose (UA) 500 or greater Urine Ketones 80 or greater Urine Occult Blood Small H Urine Nitrate Negative Urine Bilirubin Negative Urine Urobilinogen Less than 2 Ur Leukocyte Esterase Negative Urine RBC 1 Urine WBC 1 Micro UA Comment Culture not ind Ur Microscopic Review Not Reportable Urine Culture Comments Culture not ind 06/21/18 06/21/18 06/21/18 01:40 01:40 05:55 WBC 6.6 RBC 4.40 L Hgb 13.0 Hct 37.8 L MCV 86.0 MCH 29.5 MCHC 34.3 RDW 13.1 Plt Count 264 MPV 7.5 Neut % (Auto) 69.9 Lymph % (Auto) 16.5 [place] % (Auto) 9.4 H Eos % (Auto) 3.2 Baso % (Auto) 1.0 Neut # (Auto) 4.6 Lymph # (Auto) 1.1 [place] # (Auto) 0.6 Eos # (Auto) 0.2 Baso # (Auto) 0.1 WBC Differential . Differential Comment Auto diff final PT INR APTT Puncture Site Patient Temperature VBG pH VBG pCO2 VBG pO2 VBG HCO3 VBG O2 Saturation VBG O2 Content VBG Base Excess VBG Carboxyhemoglobin VBG Methemoglobin Hemoglobin O2 Delivery Device Liter Flow Inspired O2 Critical Value Sodium 137 135 L Potassium 4.2 4.3 Chloride 101 100 Carbon Dioxide 25.6 25.5 Anion Gap 10 10 BUN 8 8 Creatinine 0.79 0.67 Estimated GFR Greater than 89 Greater than 89 POC Glucose Random Glucose 222 H D 243 H Lactic Acid Calcium 7.5 L 7.6 L Total Bilirubin 0.4 AST 14 L ALT 17 Alkaline Phosphatase 94 Total Creatine Kinase CK-MB (CK-2) Troponin I 0.03 B-Natriuretic Peptide Total Protein 5.6 L D Albumin 2.8 L Lipase Beta-Hydroxybutyric Acd Urine Color Urine Clarity Urine pH Ur Specific [place] Urine Protein Urine Glucose (UA) Urine Ketones Urine Occult Blood Urine Nitrate Urine Bilirubin Urine Urobilinogen Ur Leukocyte Esterase Urine RBC Urine WBC Micro UA Comment Ur Microscopic Review Urine Culture Comments 06/21/18 06/21/18 08:05 08:30 WBC RBC Hgb Hct MCV MCH MCHC RDW Plt Count MPV Neut % (Auto) Lymph % (Auto) [place] % (Auto) Eos % (Auto) Baso % (Auto) Neut # (Auto) Lymph # (Auto) [place] # (Auto) Eos # (Auto) Baso # (Auto) WBC Differential Differential Comment PT INR APTT Puncture Site Patient Temperature VBG pH VBG pCO2 VBG pO2 VBG HCO3 VBG O2 Saturation VBG O2 Content VBG Base Excess VBG Carboxyhemoglobin VBG Methemoglobin Hemoglobin O2 Delivery Device Liter Flow Inspired O2 Critical Value Sodium Potassium Chloride Carbon Dioxide Anion Gap BUN Creatinine Estimated GFR POC Glucose 250 H Random Glucose Lactic Acid Calcium Total Bilirubin AST ALT Alkaline Phosphatase Total Creatine Kinase CK-MB (CK-2) Troponin I 0.04 B-Natriuretic Peptide Total Protein Albumin Lipase Beta-Hydroxybutyric Acd Urine Color Urine Clarity Urine pH Ur Specific [place] Urine Protein Urine Glucose (UA) Urine Ketones Urine Occult Blood Urine Nitrate Urine Bilirubin Urine Urobilinogen Ur Leukocyte Esterase Urine RBC Urine WBC Micro UA Comment Ur Microscopic Review Urine Culture Comments - Imaging Impressions Chest X-Ray 06/20/18 19:11 CONCLUSION: Prominent lucency seen along the lateral right mid and lower lung likely from emphysematous change. A pneumothorax is not clearly seen. A pleural reflection is not seen. Hyperinflated lungs likely from chronic obstructive disease. Increased interstitial markings in the perihilar regions. These could be acute or chronic. The lungs could be better evaluated with a CT examination of the chest. Abdomen/Pelvis CT 06/20/18 19:24 CONCLUSION: 1. Very prominent suspected emphysematous change/bullous change in the right lower lung. 2. Scattered areas of suspected scarring, atelectasis or consolidation at the lung bases. 3. Intra and extrahepatic biliary duct dilatation. 4. There appears to be atrophy of the pancreas. Venous Doppler Study 06/21/18 00:00 CONCLUSION: Negative study. No venous thrombosis of either lower extremity. - Procedures NONE Assessment and Plan - Plan Diabetes mellitus Hyperglycemia Diabetic ketoacidosis on presentation. = With an anion gap of 17, beta hydroxybutyric acid 5.2 = This has resolved with insulin. = We will continue diabetic diet and insulin sliding scale. Patient has an insulin pump, however is not in his possession at the moment. We will proceed with sliding scale and Levemir. Opioid-induced constipation. Abdominal pain Colitis = Colitis versus diverticulitis reported on CT abdomen from [facility] this past Wednesday. We will continue antibiotics with Cipro and Flagyl for this. Marketed constipation on CT abdomen from [facility] as well as here. Personally visualized. = Have ordered magnesium citrate. Chronic pain. Lumbar spinal stenosis We will continue patient's home pain medication Bilateral lower extremity edema. BNP only 61. This is likely secondary to spinal stenosis. Have recommended compression hose. = Doppler ultrasound bilateral lower extremity pending. COPD. Chronic. Duo nebs as needed. TOBACCO ABUSE- STOP SMOKING FOLLOW UP WITH [facility] [place] Code Status: FULL CODE Discussed Condition With: RN AND PT AND CM Discharge Planning: DC TO HOME TODAY
--- NOTE | 2018-06-21 10:31 | P.DS ---
Date of admission: 06/21/18 00:14 Primary care physician: UNKNOWN Attending physician on discharge: Osmar Lobo Anticipated date of discharge: 06/21/18 Brief History from admission: 62-year-old male with a history of insulin-dependent diabetes mellitus who presents with a one-week history of constant sharp predominately left lower quadrant abdominal pain radiating to entire abdomen, as well as hyperglycemia with glucose in the 400s. He says he has an insulin pump, however has been out of his insulin for the past 2 weeks. He visited [facility] on Wednesday, had CT abdomen which shows constipation, with secondary colitis, and was started on Cipro and Flagyl which he has been taking. Patient also reports a two-week history of worsening acute on chronic bilateral lower extremity edema. Patient has chronic lumbar spinal stenosis with chronic bilateral lower extremity edema, however worse this week. He denies any chest pain, shortness of breath, nausea, vomiting, fever, chills. DS: Diagnosis - Discharge Diagnosis (1) Chronic pain Status: Acute (2) Noncompliance Status: Acute (3) Drug-seeking behavior Status: Acute (4) Diabetes Status: Acute (5) Therapeutic opioid induced constipation Status: Acute (6) Abdominal pain Status: Acute DS: Medications - Discharge Medications Prescriptions: ciprofloxacin HCl 500 mg PO Q12HR #20 tab insulin aspart U-100 [Novolog U-100 Insulin aspart] 1 sliding scale dose SUB-Q UD #5 vial insulin detemir U-100 [Levemir U-100 Insulin] 5 unit SUB-Q BID #2 vial metronidazole 500 mg PO Q8HR #30 tab sennosides [Senna Lax] 17.2 mg PO Q12H PRN #120 tab PRN Reason: Moderate Constipation DS: Summary Hospital Course: 62-year-old male with a history of insulin-dependent diabetes mellitus who presents with a one-week history of constant sharp predominately left lower quadrant abdominal pain radiating to entire abdomen, as well as hyperglycemia with glucose in the 400s. He says he has an insulin pump, however has been out of his insulin for the past 2 weeks. He visited [facility] on Wednesday, had CT abdomen which shows constipation, with secondary colitis, and was started on Cipro and Flagyl which he has been taking. Patient also reports a two-week history of worsening acute on chronic bilateral lower extremity edema. Patient has chronic lumbar spinal stenosis with chronic bilateral lower extremity edema, however worse this week. He denies any chest pain, shortness of breath, nausea, vomiting, fever, chills. 06-21 PATIENT HAS BEEN TOTALLY NONCOMPLIANT WITH HIS MEDICATIONS STATES HE SEES DR ELIF BULLARD AND DR GAVIN IN [place] STATES HE IS LIVING IN HIS TRUCK NOW HAS CHRONIC PAIN AND CHRONIC DM HAS NOT USED HIS INSULIN PUMP DUE TO FINANCES CAN BE DISCHARGED TO HOME TODAY [email or web address] Prescription Drug Monitoring Database has been queried and verified prior to prescribing the controlled substance. Acute pain exception. This patient has normal, predicted, physiological, and time limited response to an adverse mechanical stimulus associated with surgery, trauma, or acute illness as described in my notes. There is a lack of alternative treatment options other than to include the prescribed narcotic treatment for this condition. Patient has recently been prescribed OxyContin 40 mg 60 tablets that he filled on June 18, 2018 as well as oxycodone 15 mg tablets #90 that he refilled on June 18, 2018 and has a prescription for diazepam 10 mg #90 that was filled on June 06, 2018 Therefore I am I am unable to prescribe any new narcotics for him - Time Spent with Patient Total time spent providing and/or coordinating discharge services: Greater than 30 minutes Exam Vital signs: Vital Signs 06/20/18 18:07 06/20/18 18:26 06/20/18 19:45 Temperature 97.8 F 97.9 F Pulse Rate 101 H 92 H Respiratory Rate 20 16 Blood Pressure 154/94 H 152/78 H Pulse Oximetry 95 94 L 98 06/20/18 19:46 06/20/18 20:24 06/20/18 20:41 Temperature Pulse Rate 85 71 Respiratory Rate 16 16 Blood Pressure 161/72 H 145/70 H Pulse Oximetry 98 98 98 06/21/18 00:42 06/21/18 04:18 06/21/18 05:07 Temperature 98.4 F 97.8 F Pulse Rate 75 81 74 Respiratory Rate 16 16 18 Blood Pressure 146/83 H 130/85 137/70 Pulse Oximetry 98 98 97 06/21/18 05:13 Temperature Pulse Rate 74 Respiratory Rate 20 Blood Pressure 107/54 L Pulse Oximetry Intake & Output 06/20/18 06/21/18 06/21/18 18:59 06:59 18:59 Intake Total 2685 / 2685 315 / 315 Balance 2684 315 / 315 Weight 68.039 kg Intake: IV 2684 315 / 315 NS Inj 1,000 ML @ 100 mls/hr IV 315 / 315 .CONT .Q10H [facility] Rx#:[id number] Narrative: GENERAL: Patient sitting up in bed. Appears comfortable. SKIN: Warm and dry. HEAD: Atraumatic. Normocephalic. EYES: Pupils equal and round. No scleral icterus. No injection or drainage. ENT: No nasal bleeding or discharge. Mucous membranes pink and moist. NECK: Trachea midline. No JVD. CARDIOVASCULAR: Regular rate and rhythm. RESPIRATORY: No accessory muscle use. Clear to auscultation. Breath sounds equal bilaterally. GASTROINTESTINAL: Abdomen tender to palpation left lower quadrant. No rebound or guarding. Hypoactive bowel sounds. Hepatic and splenic margins not palpable. MUSCULOSKELETAL: Extremities without clubbing, cyanosis. No obvious deformities. 1+ bilateral lower extremity edema. No erythema NEUROLOGICAL: Awake and alert. No obvious cranial nerve deficits. Motor grossly within normal limits. Five out of 5 muscle strength in the arms and legs. Normal speech. PSYCHIATRIC: Appropriate mood and affect; insight and judgment normal. Results Procedures completed during hospitalization: NONE Completed studies during hospitalization: Laboratory Results WBC 6.6 th/mm3 (4.0-11.0) 06/21/18 01:40 RBC 4.40 mil/mm3 (4.50-5.90) L 06/21/18 01:40 Hgb 13.0 gm/dL (13.0-17.0) 06/21/18 01:40 Hct 37.8 % (39.0-51.0) L 06/21/18 01:40 MCV 86.0 fL (80.0-100.0) 06/21/18 01:40 MCH 29.5 pg (27.0-34.0) 06/21/18 01:40 MCHC 34.3 % (32.0-36.0) 06/21/18 01:40 RDW 13.1 % (11.6-17.2) 06/21/18 01:40 Plt Count 264 th/mm3 (150-450) 06/21/18 01:40 MPV 7.5 fL (7.0-11.0) 06/21/18 01:40 Neut % (Auto) 69.9 % (16.0-70.0) 06/21/18 01:40 Lymph % (Auto) 16.5 % (9.0-44.0) 06/21/18 01:40 Pope % (Auto) 9.4 % (0.0-8.0) H 06/21/18 01:40 Eos % (Auto) 3.2 % (0.0-4.0) 06/21/18 01:40 Baso % (Auto) 1.0 % (0.0-2.0) 06/21/18 01:40 Neut # (Auto) 4.6 th/mm3 (1.8-7.7) 06/21/18 01:40 Lymph # (Auto) 1.1 th/mm3 (1.0-4.8) 06/21/18 01:40 Pope # (Auto) 0.6 th/mm3 (0.0-0.9) 06/21/18 01:40 Eos # (Auto) 0.2 th/mm3 (0.0-0.4) 06/21/18 01:40 Baso # (Auto) 0.1 th/mm3 (0.0-0.2) 06/21/18 01:40 WBC Differential . 06/21/18 01:40 Differential Comment Auto diff final 06/21/18 01:40 PT 11.4 sec (9.8-11.6) 06/20/18 19:30 INR 1.1 Ratio 06/20/18 19:30 APTT 24.8 sec (24.3-30.1) 06/20/18 19:30 Puncture Site Rn yomi from iv 06/20/18 19:30 Patient Temperature 98.6 06/20/18 19:30 VBG pH 7.37 (7.360-7.400) 06/20/18 19:30 VBG pCO2 39 mmHG (44-48) L 06/20/18 19:30 VBG pO2 50 mmHG (35-40) H 06/20/18 19:30 VBG HCO3 22 mmol/L (22-26) 06/20/18 19:30 VBG O2 Saturation 80 % (70-76) H 06/20/18 19:30 VBG O2 Content 14.5 Vol % (9.0-17.0) 06/20/18 19:30 VBG Base Excess -2.8 mmol/L (-2-2) L 06/20/18 19:30 VBG Carboxyhemoglobin 1.7 % (0-4) 06/20/18 19:30 VBG Methemoglobin 0.8 % (0-2) 06/20/18 19:30 Hemoglobin 12.9 G/DL (12.0-16.0) 06/20/18 19:30 O2 Delivery Device Nasal cannula 06/20/18 19:30 Liter Flow 2.00 L/M 06/20/18 19:30 Inspired O2 21 % 06/20/18 19:30 Critical Value No 06/20/18 19:30 Sodium 135 meq/L (136-145) L 06/21/18 05:55 Potassium 4.3 meq/L (3.5-5.1) 06/21/18 05:55 Chloride 100 meq/L (98-107) 06/21/18 05:55 Carbon Dioxide 25.5 meq/L (21.0-32.0) 06/21/18 05:55 Anion Gap 10 meq/L (5-15) 06/21/18 05:55 BUN 8 mg/dL (7-18) 06/21/18 05:55 Creatinine 0.67 mg/dL (0.60-1.30) 06/21/18 05:55 Estimated GFR Greater than 89 mL/min (>89) 06/21/18 05:55 POC Glucose 250 mg/dl (68-110) H 06/21/18 08:05 Random Glucose 243 mg/dL (74-106) H 06/21/18 05:55 Lactic Acid 1.2 mmol/L (0.4-2.0) 06/20/18 19:30 Calcium 7.6 mg/dL (8.5-10.1) L 06/21/18 05:55 Total Bilirubin 0.4 mg/dL (0.2-1.0) 06/21/18 05:55 AST 14 U/L (15-37) L 06/21/18 05:55 ALT 17 U/L (12-78) 06/21/18 05:55 Alkaline Phosphatase 94 U/L (45-117) 06/21/18 05:55 Total Creatine Kinase 136 U/L (39-308) 06/20/18 19:30 CK-MB (CK-2) 2.9 ng/mL (0.5-3.6) 06/20/18 19:30 Troponin I 0.04 ng/mL (0.02-0.05) 06/21/18 08:30 B-Natriuretic Peptide 61 pg/mL (0-100) 06/20/18 19:30 Total Protein 5.6 g/dL (6.4-8.2) L D 06/21/18 05:55 Albumin 2.8 g/dL (3.4-5.0) L 06/21/18 05:55 Lipase 27 U/L (73-393) L 06/20/18 19:30 Beta-Hydroxybutyric Acd 5.22 mmol/L (0.00-0.39) H 06/20/18 19:30 Urine Color Yellow (Yellw/Straw) 06/20/18 20:50 Urine Clarity Clear (Clear) 06/20/18 20:50 Urine pH 6.0 (5.0-8.5) 06/20/18 20:50 Ur Specific [place] 1.027 (1.002-1.035) 06/20/18 20:50 Urine Protein Negative mg/dL (Neg-Trace) 06/20/18 20:50 Urine Glucose (UA) 500 or greater mg/dL (Negative) 06/20/18 20:50 Urine Ketones 80 or greater mg/dL (Negative) 06/20/18 20:50 Urine Occult Blood Small (Negative) H 06/20/18 20:50 Urine Nitrate Negative (Negative) 06/20/18 20:50 Urine Bilirubin Negative (Negative) 06/20/18 20:50 Urine Urobilinogen Less than 2 mg/dL (Less than 2) 06/20/18 20:50 Ur Leukocyte Esterase Negative (Negative) 06/20/18 20:50 Urine RBC 1 /hpf (0-3) 06/20/18 20:50 Urine WBC 1 /hpf (0-5) 06/20/18 20:50 Micro UA Comment Culture not ind 06/20/18 20:50 Ur Microscopic Review Not Reportable 06/20/18 20:50 Urine Culture Comments Culture not ind 06/20/18 20:50 Impressions Chest X-Ray 06/20/18 19:11 CONCLUSION: Prominent lucency seen along the lateral right mid and lower lung likely from emphysematous change. A pneumothorax is not clearly seen. A pleural reflection is not seen. Hyperinflated lungs likely from chronic obstructive disease. Increased interstitial markings in the perihilar regions. These could be acute or chronic. The lungs could be better evaluated with a CT examination of the chest. Abdomen/Pelvis CT 06/20/18 19:24 CONCLUSION: 1. Very prominent suspected emphysematous change/bullous change in the right lower lung. 2. Scattered areas of suspected scarring, atelectasis or consolidation at the lung bases. 3. Intra and extrahepatic biliary duct dilatation. 4. There appears to be atrophy of the pancreas. Venous Doppler Study 06/21/18 00:00 CONCLUSION: Negative study. No venous thrombosis of either lower extremity. Labs on day of discharge: Labs from last 24 hours 06/21/18 06/21/18 06/21/18 08:30 08:05 05:55 WBC RBC Hgb Hct MCV MCH MCHC RDW Plt Count MPV Neut % (Auto) Lymph % (Auto) Pope % (Auto) Eos % (Auto) Baso % (Auto) Neut # (Auto) Lymph # (Auto) Pope # (Auto) Eos # (Auto) Baso # (Auto) WBC Differential Differential Comment PT INR APTT Puncture Site Patient Temperature VBG pH VBG pCO2 VBG pO2 VBG HCO3 VBG O2 Saturation VBG O2 Content VBG Base Excess VBG Carboxyhemoglobin VBG Methemoglobin Hemoglobin O2 Delivery Device Liter Flow Inspired O2 Critical Value Sodium 135 L Potassium 4.3 Chloride 100 Carbon Dioxide 25.5 Anion Gap 10 BUN 8 Creatinine 0.67 Estimated GFR Greater than 89 POC Glucose 250 H Random Glucose 243 H Lactic Acid Calcium 7.6 L Total Bilirubin 0.4 AST 14 L ALT 17 Alkaline Phosphatase 94 Total Creatine Kinase CK-MB (CK-2) Troponin I 0.04 B-Natriuretic Peptide Total Protein 5.6 L D Albumin 2.8 L Lipase Beta-Hydroxybutyric Acd Urine Color Urine Clarity Urine pH Ur Specific [place] Urine Protein Urine Glucose (UA) Urine Ketones Urine Occult Blood Urine Nitrate Urine Bilirubin Urine Urobilinogen Ur Leukocyte Esterase Urine RBC Urine WBC Micro UA Comment Ur Microscopic Review Urine Culture Comments 06/21/18 06/21/18 06/20/18 01:40 01:40 20:50 WBC 6.6 RBC 4.40 L Hgb 13.0 Hct 37.8 L MCV 86.0 MCH 29.5 MCHC 34.3 RDW 13.1 Plt Count 264 MPV 7.5 Neut % (Auto) 69.9 Lymph % (Auto) 16.5 Pope % (Auto) 9.4 H Eos % (Auto) 3.2 Baso % (Auto) 1.0 Neut # (Auto) 4.6 Lymph # (Auto) 1.1 Pope # (Auto) 0.6 Eos # (Auto) 0.2 Baso # (Auto) 0.1 WBC Differential . Differential Comment Auto diff final PT INR APTT Puncture Site Patient Temperature VBG pH VBG pCO2 VBG pO2 VBG HCO3 VBG O2 Saturation VBG O2 Content VBG Base Excess VBG Carboxyhemoglobin VBG Methemoglobin Hemoglobin O2 Delivery Device Liter Flow Inspired O2 Critical Value Sodium 137 Potassium 4.2 Chloride 101 Carbon Dioxide 25.6 Anion Gap 10 BUN 8 Creatinine 0.79 Estimated GFR Greater than 89 POC Glucose Random Glucose 222 H D Lactic Acid Calcium 7.5 L Total Bilirubin AST ALT Alkaline Phosphatase Total Creatine Kinase CK-MB (CK-2) Troponin I 0.03 B-Natriuretic Peptide Total Protein Albumin Lipase Beta-Hydroxybutyric Acd Urine Color Yellow Urine Clarity Clear Urine pH 6.0 Ur Specific [place] 1.027 Urine Protein Negative Urine Glucose (UA) 500 or greater Urine Ketones 80 or greater Urine Occult Blood Small H Urine Nitrate Negative Urine Bilirubin Negative Urine Urobilinogen Less than 2 Ur Leukocyte Esterase Negative Urine RBC 1 Urine WBC 1 Micro UA Comment Culture not ind Ur Microscopic Review Not Reportable Urine Culture Comments Culture not ind 06/20/18 06/20/18 06/20/18 19:30 19:30 19:30 WBC 5.8 RBC 4.57 Hgb 13.6 Hct 40.4 MCV 88.4 MCH 29.6 MCHC 33.5 RDW 13.1 Plt Count 260 MPV 7.7 Neut % (Auto) 79.8 H Lymph % (Auto) 12.0 Pope % (Auto) 5.6 Eos % (Auto) 1.5 Baso % (Auto) 1.1 Neut # (Auto) 4.6 Lymph # (Auto) 0.7 L Pope # (Auto) 0.3 Eos # (Auto) 0.1 Baso # (Auto) 0.1 WBC Differential . Differential Comment Auto diff final PT INR APTT Puncture Site Patient Temperature VBG pH VBG pCO2 VBG pO2 VBG HCO3 VBG O2 Saturation VBG O2 Content VBG Base Excess VBG Carboxyhemoglobin VBG Methemoglobin Hemoglobin O2 Delivery Device Liter Flow Inspired O2 Critical Value Sodium 133 L Potassium 4.8 Chloride 95 L Carbon Dioxide 21.0 Anion Gap 17 H BUN 10 Creatinine 0.81 Estimated GFR Greater than 89 POC Glucose Random Glucose 344 H Lactic Acid Calcium 7.9 L Total Bilirubin 0.6 AST 14 L ALT 19 Alkaline Phosphatase 109 Total Creatine Kinase CK-MB (CK-2) Troponin I B-Natriuretic Peptide 61 Total Protein 6.4 Albumin 3.2 L Lipase 27 L Beta-Hydroxybutyric Acd Urine Color Urine Clarity Urine pH Ur Specific [place] Urine Protein Urine Glucose (UA) Urine Ketones Urine Occult Blood Urine Nitrate Urine Bilirubin Urine Urobilinogen Ur Leukocyte Esterase Urine RBC Urine WBC Micro UA Comment Ur Microscopic Review Urine Culture Comments 06/20/18 06/20/18 06/20/18 19:30 19:30 19:30 WBC RBC Hgb Hct MCV MCH MCHC RDW Plt Count MPV Neut % (Auto) Lymph % (Auto) Pope % (Auto) Eos % (Auto) Baso % (Auto) Neut # (Auto) Lymph # (Auto) Pope # (Auto) Eos # (Auto) Baso # (Auto) WBC Differential Differential Comment PT INR APTT Puncture Site Rn yomi from iv Patient Temperature 98.6 VBG pH 7.37 VBG pCO2 39 L VBG pO2 50 H VBG HCO3 22 VBG O2 Saturation 80 H VBG O2 Content 14.5 VBG Base Excess -2.8 L VBG Carboxyhemoglobin 1.7 VBG Methemoglobin 0.8 Hemoglobin 12.9 O2 Delivery Device Nasal cannula Liter Flow 2.00 Inspired O2 21 Critical Value No Sodium Potassium Chloride Carbon Dioxide Anion Gap BUN Creatinine Estimated GFR POC Glucose Random Glucose Lactic Acid 1.2 Calcium Total Bilirubin AST ALT Alkaline Phosphatase Total Creatine Kinase 136 CK-MB (CK-2) 2.9 Troponin I 0.04 B-Natriuretic Peptide Total Protein Albumin Lipase Beta-Hydroxybutyric Acd 5.22 H Urine Color Urine Clarity Urine pH Ur Specific [place] Urine Protein Urine Glucose (UA) Urine Ketones Urine Occult Blood Urine Nitrate Urine Bilirubin Urine Urobilinogen Ur Leukocyte Esterase Urine RBC Urine WBC Micro UA Comment Ur Microscopic Review Urine Culture Comments 06/20/18 06/20/18 19:30 18:09 WBC RBC Hgb Hct MCV MCH MCHC RDW Plt Count MPV Neut % (Auto) Lymph % (Auto) Pope % (Auto) Eos % (Auto) Baso % (Auto) Neut # (Auto) Lymph # (Auto) Pope # (Auto) Eos # (Auto) Baso # (Auto) WBC Differential Differential Comment PT 11.4 INR 1.1 APTT 24.8 Puncture Site Patient Temperature VBG pH VBG pCO2 VBG pO2 VBG HCO3 VBG O2 Saturation VBG O2 Content VBG Base Excess VBG Carboxyhemoglobin VBG Methemoglobin Hemoglobin O2 Delivery Device Liter Flow Inspired O2 Critical Value Sodium Potassium Chloride Carbon Dioxide Anion Gap BUN Creatinine Estimated GFR POC Glucose 400 H Random Glucose Lactic Acid Calcium Total Bilirubin AST ALT Alkaline Phosphatase Total Creatine Kinase CK-MB (CK-2) Troponin I B-Natriuretic Peptide Total Protein Albumin Lipase Beta-Hydroxybutyric Acd Urine Color Urine Clarity Urine pH Ur Specific [place] Urine Protein Urine Glucose (UA) Urine Ketones Urine Occult Blood Urine Nitrate Urine Bilirubin Urine Urobilinogen Ur Leukocyte Esterase Urine RBC Urine WBC Micro UA Comment Ur Microscopic Review Urine Culture Comments - Impressions ITS Impressions Chest X-Ray 06/20/18 19:11 CONCLUSION: Prominent lucency seen along the lateral right mid and lower lung likely from emphysematous change. A pneumothorax is not clearly seen. A pleural reflection is not seen. Hyperinflated lungs likely from chronic obstructive disease. Increased interstitial markings in the perihilar regions. These could be acute or chronic. The lungs could be better evaluated with a CT examination of the chest. Abdomen/Pelvis CT 06/20/18 19:24 CONCLUSION: 1. Very prominent suspected emphysematous change/bullous change in the right lower lung. 2. Scattered areas of suspected scarring, atelectasis or consolidation at the lung bases. 3. Intra and extrahepatic biliary duct dilatation. 4. There appears to be atrophy of the pancreas. Venous Doppler Study 06/21/18 00:00 CONCLUSION: Negative study. No venous thrombosis of either lower extremity. Discharge Plan - Discharge Disposition Patient Disposition: 01 Discharge Home - Discharge Condition Condition: Good - Discharge Order Discharge Orders: Discharge Order (Routine); Ordered 06/21/18 Ordered By: Osmar Lobo - Discharge Details Anticipated Discharge Date: 06/21/18 Discharge Comment: dc to home - Physicians Team Primary Care Provider: UNKNOWN, Attending Provider: Osmar Lobo Rxs /Orders / Referrals /Forms Prescriptions: New ciprofloxacin HCl 500 mg Tablet 500 mg PO Q12HR Qty: 20 RF: 0 metronidazole 500 mg Tablet 500 mg PO Q8HR Qty: 30 RF: 0 sennosides [Senna Lax] 8.6 mg Tablet 17.2 mg PO Q12H PRN (Reason: Moderate Constipation) Qty: 120 RF: 0 sennosides-docusate sodium [Senna-S] 8.6-50 mg Tablet 2 tab PO BID Qty: 120 RF: 0 Continue insulin aspart U-100 [Novolog U-100 Insulin aspart] 100 unit/mL Solution 1 sliding scale dose SUB-Q UD Qty: 5 insulin detemir U-100 [Levemir U-100 Insulin] 100 unit/mL Solution 5 unit Sub-Q BID Qty: 2 oxycodone [OxyContin] 40 mg Tablet,Oral Only,Ext.Rel.12 Hr 40 mg PO Q12H oxycodone [Roxicodone] 15 mg Tablet 15 mg PO Q8H PRN (Reason: Pain) No Action ciprofloxacin HCl [Cipro] 500 mg Tablet 500 mg PO Q12H metronidazole [Flagyl] 500 mg Tablet 500 mg PO BID Referrals: [facility] [Outside] - See Instructions (2 to 3 days for follow up) UNKNOWN, [Primary Care Provider] - See Instructions (elif bullard pcp in 2 to 3 days)
--- NOTE | 2018-06-21 16:49 | ECG ---
Date Performed: 06/20/2018 Time Performed: 21:09:04 PTAGE: 62 years EKG: Sinus rhythm WITH SINUS ARRHYTHMIA LOW QRS VOLTAGE IN PRECORDIAL LEADS LATE R WAVE TRANSITION ABNORMAL ECG NO PREVIOUS TRACING DOCTOR: Lon Dubois Interpretating Date/Time 06/21/2018 16:48:02
--- NOTE | 2018-06-21 16:50 | ECG ---
Date Performed: 06/21/2018 Time Performed: 06:15:12 PTAGE: 62 years EKG: Sinus rhythm LOW QRS VOLTAGE IN EXTREMITY LEADS POSSIBLE ANTERIOR MYOCARDIAL INFARCTION, AGE INDETERMINATE ABNORM AL ECG PREVIOUS TRACING : 06/21/2018 01.38 DOCTOR: Lon Dubois Interpretating Date/Time 06/21/2018 16:48:26
--- NOTE | 2018-06-21 16:50 | ECG ---
Date Performed: 06/21/2018 Time Performed: 01:38:54 PTAGE: 62 years EKG: Sinus rhythm LOW QRS VOLTAGE IN PRECORDIAL LEADS LATE R WAVE TRANSITION ABNORMAL ECG PREVIOUS TRACING : 06/20/2018 21.09 DOCTOR: Lon Dubois Interpretating Date/Time 06/21/2018 16:48:11
== END 2018-06-21 11:00 | disposition home or self-care (01) ==
LOC: NEPC 18:04 → NEDA 22:59 → INTOOBSV 22:59 → NEDH 06-21 04:14
PROVIDERS: ADMIT Hospitalist; ATTEND Hospitalist
DX: M48.061 Spinal stenosis, lumbar region without neurogenic claudication; R53.1 Weakness; E11.40 Type 2 diabetes mellitus with diabetic neuropathy, unspecified; H91.90 Unspecified hearing loss, unspecified ear; E11.10 Type 2 diabetes mellitus with ketoacidosis without coma; Z91.14 Patient's other noncompliance with medication regimen; Z76.5 Malingerer [conscious simulation]; R60.0 Localized edema; K59.03 Drug induced constipation; E86.0 Dehydration; G89.29 Other chronic pain; Z96.41 Presence of insulin pump (external) (internal); J44.9 Chronic obstructive pulmonary disease, unspecified; R79.89 Other specified abnormal findings of blood chemistry